=== PATIENT | female | born 1975 | race Two or more races ===

== ENCOUNTER 2017-08-04 09:10 | Emergency (ER) | payer OTHER ==
[2017-08-04 09:34] VITALS: BP 125/75; PULSE 89; TEMP 98.3; BMI 26.2
--- NOTE | 2017-08-04 10:00 | PDOC ---
History of Present Illness - General Chief Complaint: Sore Throat Stated Complaint: THROAT PAIN Time Seen by Provider: 08/04/17 09:37 History Source: Patient Exam Limitations: No Limitations - History of Present Illness Initial Comments: 08/04/17 09:55 41 yr female sore throat fever started last night. no abd pain or vomiting no urinary complaints. took tylenol at 5am. no sick contacts at home. Severity: mild Past History - Past Medical History Allergies/Adverse Reactions: Allergies Allergy/AdvReac Type Severity Reaction Status Date / Time No Known Allergies Allergy Verified 08/04/17 09:25 Home Medications: Ambulatory Orders NK [No Known Home Medication] 08/04/17 Cardiac Disorders: No CVA: No COPD: No - Immunization History Immunization Up to Date: Yes - Suicide/Smoking/Psychosocial Hx Smoking History: Never smoked Have you smoked in the past 12 months: No Information on smoking cessation initiated: No Hx Alcohol Use: No Drug/Substance Use Hx: No Review of Systems - Review of Systems Able to Perform ROS?: Yes Is the patient limited Divehi proficient: No Constitutional: Yes: Symptoms Reported HEENTM: Yes: Symptoms Reported Respiratory: Yes: Symptoms reported *Physical Exam - Vital Signs Last Vital Signs Temp Pulse Resp BP Pulse Ox 98.3 F 89 16 125/75 97 08/04/17 09:26 08/04/17 09:26 08/04/17 09:26 08/04/17 09:26 08/04/17 09:26 - Physical Exam General Appearance: Yes: Nourished, Appropriately Dressed HEENT: positive: EOMI, ALE, TMs Normal, Pharynx Normal. negative: Pharyngeal Erythema, Tonsillar Exudate, Tonsillar Erythema, Nasal Congestion, Excessive drooling Neck: positive: Supple. negative: Tender Respiratory/Chest: positive: Lungs Clear, Normal Breath Sounds. 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
== END 2017-08-04 10:51 | disposition home or self-care (01) ==
LOC: JERFT 09:10
DX: J11.1 Influenza due to unidentified influenza virus with other respiratory manifestations (principal)
CPT/HCPCS: 87070; 87430; 99281-25